=== PATIENT | female | born 1975 | race Caucasian/White ===

== ENCOUNTER → 2021-08-27 | Day surgery (SDC) | payer OTHER ==
[~2021-08-27] VITALS: Ht 150 cm; Wt 66.7 kg
[~2021-08-27] MED LIST: ANTIOXIDANT SO1 EACH PO; BIOTIN2500 MCG PO; COLACE100 MG PO; ESTER-C 1,0001 EACH PO; FIBER GUMMIES2 GM PO; FLAX SEED OIL1000 MG PO; FLEXERIL10 MG PO; IBUPROFEN800 MG PO; IRON325 M1 PO; MACROBID100 MG PO; MAG-OXIDE 400M400 MG PO; MELATONIN5 MG PO; MILK THISTLE175 M2 PO; MOTRIN600 MG PO; PAPAYA ENZYME1 EACH PO; PERCOCET 5-3251 EACH PO; SEA KELP PO; VITAMIN D3 COM1 EACH PO; VOLTAREN **OUT75 MG PO; YEAST PO; [UNRECOGNIZED DRUG - OTHER] PO
== END | disposition home or self-care (01) ==
LOC: FAS 08:01
DX: K59.09 Other constipation (principal); E66.9 Obesity, unspecified; Z90.710 Acquired absence of both cervix and uterus
CPT/HCPCS: J2250; J2704; J7120